=== PATIENT | female | born 1975 | race Two or more races ===

== ENCOUNTER → 2020-09-01 | Outpatient (CLI) | payer MEDICAID ==
--- NOTE | 2020-09-01 15:00 | Consultation ---
DATE OF CONSULTATION: 09/01/2020 REASON FOR CONSULTATION: Referral for chronic GERD, chronic epigastric abdominal pain. PAST MEDICAL HISTORY: Hypercholesterolemia. PAST SURGICAL HISTORY: None. MEDICATIONS: Simvastatin. FAMILY HISTORY: Grandmother had oropharyngeal cancer. SOCIAL HISTORY: The patient denies any tobacco, alcohol, or drug use. ALLERGIES: No allergies. REVIEW OF SYSTEMS: Positive for bloating, GERD, on and off abdominal pain, and some rectal bleeding from hemorrhoids. PHYSICAL EXAMINATION: VITAL SIGNS: Temperature 96.9, blood pressure 145/77, pulse is 80, respirations 20, weight is 198. HEENT: Normocephalic, atraumatic. Sclerae are anicteric. NECK: Supple. No evidence of obvious lymphadenopathy. CARDIOVASCULAR: Regular rhythm. Plus S1-S2. LUNGS: Clear to auscultation bilaterally. ABDOMEN: Positive bowel sounds. Soft and nontender. No rebound. No guarding. No peritoneal sign. EXTREMITIES: No cyanosis, no clubbing, no edema. ASSESSMENT AND PLAN: This is a 44-year-old female with chronic GERD, not responding to [id number] PPI. Needs an endoscopy, which we will schedule when authorization obtained. The patient was told to get Align 1 tablet p.o. daily and follow up after endoscopy. Marco Manriquez M.D. DR: NO JOB#: [id number] CC:
== END | disposition home or self-care (01) ==
LOC: PAN 13:57
DX: K21.9 Gastro-esophageal reflux disease without esophagitis (principal); R10.13 Epigastric pain; E78.00 Pure hypercholesterolemia, unspecified; Z88.8 Allergy status to other drugs, medicaments and biological substances; K64.9 Unspecified hemorrhoids